=== PATIENT | female | born 1980 | race Hispanic/Latino ===

== ENCOUNTER 2019-02-09 21:14 | Emergency (ER) | payer BC, OTHER ==
[2019-02-09 21:50] VITALS: BMI 38.2
[2019-02-09 21:51] VITALS: RESP 18; TEMP 97.7
--- NOTE | 2019-02-09 22:18 | ED PDOC ---
Arrival/HPI - General Historian: Patient - History of Present Illness Narrative History of Present Illness (Text): Patient is a 38 year old female with no significant past history presenting with chief complaint of periumbilical abdominal discomfort which has began in the afternoon. Pain is worsened with positional changes and associated with nausea. Denies any changes in diet, fevers, chills, vomiting, chest pain, shortness of breath, diarrhea, dysuria, vaginal bleeding. [facility] /. Time/Duration: 24 hours Symptom Onset: Sudden Symptom Course: Unchanged Quality: Aching <Rajendra Dalton - Last Filed: 02/10/19 03:00> <Francisco Masters - Last Filed: 02/10/19 06:08> - General Chief Complaint: Abdominal Pain Past Medical History - Provider Review Nursing Documentation Reviewed: Yes - Cardiac Hx Cardiac Disorders: Yes Hx Hypertension: Yes - Psychiatric Hx Substance Use: No - Surgical History Hx Section: Yes (x 3) <Rajendra Dalton - Last Filed: 02/10/19 03:00> Family/Social History - Physician Review Nursing Documentation Reviewed: Yes Family/Social History: No Known Family HX Smoking Status: Never Smoked Hx Alcohol Use: No Hx Substance Use: No <Rajendra Dalton - Last Filed: 02/10/19 03:00> Allergies/Home Meds <Rajendra Dalton - Last Filed: 02/10/19 03:00> <Francisco Masters - Last Filed: 02/10/19 06:08> Allergies/Adverse Reactions: Allergies No Known Allergies Allergy (Verified 02/09/19 21:50) Review of Systems - Physician Review All systems were reviewed & negative as marked: Yes - Review of Systems Respiratory: Normal Cardiovascular: Normal Gastrointestinal: Abdominal Pain, Nausea. absent: Stool Changes, Constipation, Diarrhea, Vomiting, Hematochezia, Hematemesis Genitourinary Female: Normal <Rajendra Dalton - Last Filed: 02/10/19 03:00> - Review of Systems Constitutional: Normal Eyes: Normal ENT: Normal Respiratory: Normal Cardiovascular: Normal Gastrointestinal: Normal Genitourinary Female: Normal Musculoskeletal: Normal Skin: Normal Neurological: Normal Endocrine: Normal Hemo/Lymphatic: Normal Psychiatric: Normal <Francisco Masters - Last Filed: 02/10/19 06:08> Physical Exam Vital Signs Reviewed: Yes Vital Signs Temp Pulse Resp BP Pulse Ox 02/09/19 21:51 97.7 F 76 18 145/88 96 Temperature: Afebrile Blood Pressure: Normal Pulse: Regular Respiratory Rate: Normal Appearance: Positive for: Well-Appearing Pain Distress: None Mental Status: Positive for: Alert and Oriented X 3 - Systems Exam Head: Present: Atraumatic, Normocephalic Pupils: Present: PERRL Extroacular Muscles: Present: EOMI Conjunctiva: Present: Normal Mouth: Present: Moist Mucous Membranes Respiratory/Chest: Present: Clear to Auscultation, Respiratory Distress. No: Good Air Exchange, Accessory Muscle Use Cardiovascular: Present: Regular Rate and Rhythm, Normal S1, S2. No: Tachycardic Abdomen: Present: Normal Bowel Sounds. No: Tenderness, Distention Lower Extremity: Present: Normal Inspection. No: Edema Neurological: Present: GCS=15, Speech Normal Skin: Present: Warm, Dry, Normal Color <Rajendra Dalton - Last Filed: 02/10/19 03:00> Vital Signs Temp Pulse Resp BP Pulse Ox 02/09/19 21:51 97.7 F 76 18 145/88 96 - Systems Exam Back: Present: Normal Inspection Upper Extremity: Present: Normal Inspection <Francisco Masters - Last Filed: 02/10/19 06:08> Medical Decision Making ED Course and Treatment: Impression: 38 year old female with abdominal pain Plan: - CBC, CMP - lipase - Toradol - urine - CT abd pelvis - Reassess and disposition Prior Visits: Notes and results from previous visits were reviewed. Progress Notes: Labs and imaging reviewed. Patient resting comfortably, hemodynamically stable. Patient in agreement with discharge and plan of management. - RAD Interpretation Radiology Orders: 02/09/19 22:10 ABD & PELVIS IV CONTRAST ONLY [CT] Stat - Medication Orders Current Medication Orders: Ketorolac Tromethamine (Toradol) 15 mg IVP STAT STA Stop: 02/09/19 22:11 <Rajendra Dalton - Last Filed: 02/10/19 03:00> ED Course and Treatment: Impression: Pt seen and evaluated with medical records director. Aware and agree with HPI, clinical findings, plan, and management. Pt, with no significant past medical history, who presented for periumbilical abdominal pain and nausea. Plan: -- CT Abdomen and Pelvis -- Labs, lipase -- Urinalysis -- Toradol -- Reassess and disposition - Lab Interpretations Lab Results: Total Bilirubin 0.3 mg/dL (0.2-1.3) 02/09/19 22:30 AST 19 U/L (14-36) 02/09/19 22:30 ALT 19 U/L (7-56) 02/09/19 22:30 Alkaline Phosphatase 80 U/L (38-126) 02/09/19 22:30 Total Protein 6.9 g/dL (5.8-8.3) 02/09/19 22:30 Albumin 4.0 g/dL (3.0-4.8) 02/09/19 22: Globulin 2.9 gm/dL 02/09/19 22: Albumin/Globulin Ratio 1.4 (1.1-1.8) 02/09/19 22:30 Lipase 227 U/L (23-300) 02/09/19 22:30 Urine Color Light yellow (YELLOW) 02/09/19 22:30 Urine Appearance Clear (CLEAR) 02/09/19 22:30 Urine pH 6.0 (4.7-8.0) 02/09/19 22:30 Ur Specific [place] >= 1.030 (1.005-1.035) 02/09/19 22:30 Urine Protein Negative mg/dL (<30 mg/dL) 02/09/19 22:30 Urine Glucose (UA) Negative mg/dL (NEGATIVE) 02/09/19 22:30 Urine Ketones Negative mg/dL (NEGATIVE) 02/09/19 22:30 Urine Blood Negative (NEGATIVE) 02/09/19 22:30 Urine Nitrate Negative (NEGATIVE) 02/09/19 22:30 Urine Bilirubin Negative (NEGATIVE) 02/09/19 22:30 Urine Urobilinogen 0.2 E.U./dL (<1 E.U./dL) 02/09/19 22:30 Ur Leukocyte Esterase Negative Darrel/uL (NEGATIVE) 02/09/19 22:30 Urine HCG, Qual Negative (NEGATIVE) 02/09/19 22:30 Urine HCG, Qual Negative (NEGATIVE) 02/09/19 22:30 - RAD Interpretation Radiology Orders: 02/09/19 22:10 ABD & PELVIS IV CONTRAST ONLY [CT] Stat - Medication Orders Current Medication Orders: Discontinued Medications Ketorolac Tromethamine (Toradol) 15 mg IVP STAT STA Stop: 02/09/19 22:11 Last Admin: 02/09/19 22:37 Dose: 15 mg MAR Pain Assessment Document 02/09/19 22:37 TN (Rec: 02/09/19 22:37 TN [id number]) Pain Reassessment Is this a pain reassessment? No Sleep Is patient sleeping during reassessment? No Presence of Pain Presence of Pain Yes Pain Scale Used Protocol: PSCALES Pain Scale Used Numeric Location Pain Location Body Site Abdomen Description Description Intermittent IVP Administration Document 02/09/19 22:37 TN (Rec: 02/09/19 22:37 TN [id number]) Charges for Administration # of IVP Administrations 1 <Francisco Masters - Last Filed: 02/10/19 06:08> - PA / BOTTOM MAN / Resident Statement / has reviewed & agrees with the documentation as recorded. / has examined the patient and agrees with the treatment plan. <Francisco Masters - Last Filed: 02/10/19 06:08> Disposition/Present on Arrival - Present on Arrival Any Indicators Present on Arrival: No History of DVT/PE: No History of Uncontrolled Diabetes: No Urinary Catheter: No History of Decub. Ulcer: No History Surgical Site Infection Following: None - Disposition Have Diagnosis and Disposition been Completed?: Yes Disposition Time: 01:10 <Rajendra Dalton - Last Filed: 02/10/19 03:00> <Francisco Masters - Last Filed: 02/10/19 06:08> - Disposition Diagnosis: Gastritis Disposition: HOME/ ROUTINE Condition: STABLE Discharge Instructions (ExitCare): Gastritis Prescriptions: Pantoprazole Sodium [Protonix] 40 mg PO DAILY #14 ect Referrals: Francisco Baker MD [Staff Provider] - Follow up with primary Forms: [employer] ([place])
[2019-02-09 22:57] LABS: BASO # 0.03 K/mm3 (0.0-2.0); BASO % 0.3 % (0.0-3.0); EOS # 0.3 (0.0-0.7); EOS % 3.3 % (1.5-5.0); LYMPH # 1.9 (1.2-3.4); LYMPH % 21.2 % (22.0-35.0); MEAN CELL VOLUME 81.3 fl (80.0-105.0); MEAN CORPUSCULAR HEMOGLOBIN 26.7 pg (25.0-35.0); MEAN CORPUSCULAR HGB CONC 32.8 g/dl (31.0-37.0); MEAN PLATELET VOLUME 10.2 fl (7.0-11.0); MONO # 0.5 (0.1-0.6); MONO % 5.9 % (1.0-6.0); RBC 5.25 10^6/uL (3.5-6.1)
[2019-02-09 22:58] LABS: URINE BILIRUBIN NEGATIVE (NEGATIVE); URINE BLOOD NEGATIVE (NEGATIVE); URINE GLUCOSE (UA) NEGATIVE (NEGATIVE); URINE LEUKOCYTE ESTERASE NEGATIVE Leu/uL (NEGATIVE); URINE PROTEIN NEGATIVE mg/dL (<30 mg/dL); URINE UROBILINOGEN 0.2 E.U./dL (<1 E.U./dL)
[2019-02-09 22:59] LABS: URINE APPEARANCE CLEAR (CLEAR); URINE COLOR LIGHT YELLOW (YELLOW)
[2019-02-09 23:00] LABS: HCG,QUALITATIVE URINE NEGATIVE (NEGATIVE)
[2019-02-09 23:07] LABS: ALB/GLOB RATIO 1.4 (1.1-1.8); ALT/SGPT 19 U/L (7-56); AST/SGOT 19 U/L (14-36); BLOOD UREA NITROGEN 11 mg/dL (7-21); CALCIUM 9.2 mg/dL (8.4-10.5); GFR NON-AFRICAN AMERICAN > 60; LIPASE 227 U/L (23-300)
[2019-02-09] MEDS ORDERED: Iohexol 350 MG/100 ML VIAL ONE (23:14)
[2019-02-10 01:28] VITALS: BP 132/78; PULSE 70; O2SAT 98
--- NOTE | 2019-02-10 10:38 | CT ---
Date of service: 02/09/2019 PROCEDURE: CT Abdomen and Pelvis without intravenous contrast HISTORY: abd pain COMPARISON: None. TECHNIQUE: Technique. Contrast dose: Radiation dose: Total exam DLP = 990.56 mGy-cm. This CT exam was performed using one or more of the following dose reduction techniques: Automated exposure control, adjustment of the mA and/or kV according to patient size, and/or use of iterative reconstruction technique. FINDINGS: LOWER THORAX: Small hiatal hernia. LIVER: Unremarkable. No gross lesion or ductal dilatation. GALLBLADDER AND BILE DUCTS: Unremarkable. PANCREAS: Unremarkable. No gross lesion or ductal dilatation. SPLEEN: Unremarkable. ADRENALS: Unremarkable. No mass. KIDNEYS AND URETERS: Unremarkable. No hydronephrosis. No solid mass. VASCULATURE: Unremarkable. No aortic aneurysm. No aortic atherosclerotic calcification or mural plaque present. BOWEL: Unremarkable. No obstruction. No gross mural thickening. APPENDIX: Unremarkable. Normal appendix. PERITONEUM: Unremarkable. No free fluid. No free air. LYMPH NODES: Unremarkable. No enlarged lymph nodes. BLADDER: Unremarkable. REPRODUCTIVE: Unremarkable. BONES: No acute fracture. OTHER FINDINGS: None. IMPRESSION: No acute pathology.
== END 2019-02-10 01:10 | disposition home or self-care (01) ==
LOC: ED 21:14
DX: K29.70 Gastritis, unspecified, without bleeding (principal)
CPT/HCPCS: 74177; 80053; 81003; 81025; 83690; 84703; 85025; 96374; 99284; J1885; Q9967